=== PATIENT | female | born 1955 | race Caucasian/White ===

== ENCOUNTER 2017-12-22 23:57 | Emergency (ER) | payer BC ==
[~2017-12-22] VITALS: Ht 160 cm; Wt 100.0 kg
[2017-12-23] MEDS ORDERED: SYNTHROID125 MCG PO (00:14)
[2017-12-23] MEDS ORDERED: FOLIC ACID1 MG PO (00:15)
[2017-12-23] MEDS ORDERED: BENADRYL25 M1 PO (00:15)
[2017-12-23] MEDS ORDERED: LISINOPRIL5 MG PO (00:15)
[2017-12-23] MEDS ORDERED: FISH OIL1000 MG PO (00:16)
[2017-12-23] MEDS ORDERED: ASPIRIN81 MG PO (00:16)
[2017-12-23] MEDS ORDERED: OMEPRAZOLE20 M2 PO (00:16)
[2017-12-23] MEDS ORDERED: ZANTAC150 M1 PO (00:17)
[2017-12-23] MEDS ORDERED: CRANBERRY500 MG PO (00:17)
[2017-12-23] MEDS ORDERED: MULTIVITAMIN PO (00:18)
[2017-12-23] MEDS ORDERED: BL MAGNESIUM250 MG PO (00:18)
[2017-12-23] MEDS ORDERED: XANAX0.25 MG PO (00:19)
[2017-12-23] MEDS ORDERED: VITAMIN C500 MG PO (00:19)
[2017-12-23 01:07] LABS: HEMATOCRIT 37.6 % (37.0-47.0); HEMOGLOBIN 12.5 g/dl (12.0-16.0); IMMATURE GRANULOCYTES 0.3 % (0.0-1.0); MEAN CELL VOLUME 89.3 fL CALC (80.0-100.0); MEAN CORPUSCULAR HGB 29.7 pG CALC (26.0-32.0); MEAN CORPUSCULAR HGB CONC 33.2 g/L CALC (32.0-36.0); NEUT# 4.48 thou/uL (2.00-7.15); RED BLOOD COUNT 4.21 mill/uL (4.20-5.60)
[2017-12-23 01:22] LABS: ALBUMIN 4.4 g/dL (3.2-5.0); ALKALINE PHOSPHATASE 96 u/l (38-126); ANION GAP 16 (6-22 (CALC)); BILIRUBIN, TOTAL 0.3 mg/dL (0.0-1.4); BUN 22 mg/dL (8-23); BUN/CREATININE RATIO 30 (12-20 (CALC)); CARBON DIOXIDE 28 mmol/l (22-30); CHLORIDE 102 mmol/l (95-108); CREATININE 0.8 mg/dL (0.5-1.0); GFR > 60 ML/MIN (>=60 (CALC)); GFR FOR AFR.AMER. > 60 ML/MIN (>=60 (CALC)); POTASSIUM 3.8 mmol/l (3.5-5.1); SGOT/AST 30 u/l (9-36); SGPT/ALT 24 u/l (11-66); SODIUM 142 mmol/l (137-146); TOTAL PROTEIN 7.1 g/dL (6.3-8.2)
[2017-12-23 01:34] LABS: MYOGLOBIN 35 ng/mL (0 - 62)
[2017-12-23 01:53] LABS: TSH, 3RD GENERATION 1.61 uIU/mL (0.47 - 4.68)
[2017-12-23 03:12] LABS: URINE BILIRUBIN - DIPSTICK NEGATIVE (NEGATIVE); URINE BLOOD DIPSTICK TRACE-INTACT (NEGATIVE); URINE CLARITY SL CLOUDY; URINE COLOR YELLOW; URINE GLUCOSE - DIPSTICK NEGATIVE (NEGATIVE); URINE KETONE NEGATIVE (NEGATIVE); URINE LEUK ESTERASE MODERATE (NEGATIVE); URINE NITRITE - DIPSTICK NEGATIVE (Negative); URINE PH 6.5 (4.5-8.0); URINE PROTEIN - DIPSTICK NEGATIVE (NEG-TRACE); URINE SPECIFIC GRAVITY <=1.005; URINE UROBILINOGEN - DIPSTICK 0.2 E.U./dL (0.2)
[2017-12-23 03:13] LABS: URINE BACTERIA FEW hpf; URINE RBC 0-2 RBC/hpf (0-5); URINE SQUAMOUS EPITHELIAL CELL MODERATE EPI/hpf (0-FEW)
[2017-12-23 04:45] VITALS: BP 128/63
[2017-12-23] MEDS ORDERED: CIPROFLOXACN500 MG PO (04:59)
== END 2017-12-23 05:23 | disposition home or self-care (01) | DRG 690 ==
LOC: ED 23:57
PROVIDERS: Emergency Medicine
DX: N39.0 Urinary tract infection, site not specified (principal); R00.2 Palpitations; R68.84 Jaw pain